=== PATIENT | female | born 1990 | race Caucasian/White ===

== ENCOUNTER 2024-06-09 14:24 | Emergency (ER) | payer OTHER ==
[~2024-06-09] VITALS: Ht 154.9 cm; Wt 65.9 kg
[2024-06-09] MEDS ORDERED: ONDANSETRON ODT8 MG PO (15:43)
[2024-06-09] MEDS ORDERED: haloperidoL 5 MG TAB PO ONE (15:45)
[2024-06-09 16:01] VITALS: BP 133/76
== END 2024-06-09 16:03 | disposition home or self-care (01) ==
LOC: ED 14:24
DX: F11.23 Opioid dependence with withdrawal (principal); Z88.0 Allergy status to penicillin
CPT/HCPCS: 99283

== ENCOUNTER 2024-09-02 13:52 | Emergency (ER) | payer OTHER ==
[~2024-09-02] VITALS: Ht 154.9 cm; Wt 67.6 kg
[~2024-09-02 13:52] MED LIST: ONDANSETRON ODT8 MG PO
[2024-09-02] MEDS ORDERED: KETOROLAC TROMETHAMINE 15 MG/ML VIAL IV ONE (14:15)
[2024-09-02] MEDS ORDERED: ondansetron HCL 4 MG/2 ML VIAL IV PRN (14:15)
[2024-09-02] MEDS ORDERED: SODIUM CHLORIDE 0.9% 1,000 ML IV ONE (14:45)
[2024-09-02] MEDS ORDERED: KETOROLAC TROMETHAMINE 30 MG/ML VIAL IV ONE (14:45)
[2024-09-02 14:49] LABS: BASOPHILS 0.3 % (0-2); EOSINOPHILS 0.3 % (0-6); HEMATOCRIT 39.5 % (35.0-50.0); HEMOGLOBIN 13.4 g/dL (12.0-18.0); MCH 29.8 (27-36); MCV 87.7 fl (81-99); MONOCYTES 0.5 % (0-12); NEUTROPHILS 97.9 % (39-80); PLATELET COUNT 355 K/uL (140-440); RBC 4.51 M/ul (4.3-5.7); RDW 13.3 (10.5-15.0)
[2024-09-02 14:50] LABS: BILIRUBIN, URINE NEGATIVE (negative); BLOOD/HGB, URINE SMALL (Negative); KETONE, URINE NEGATIVE (Negative); LEUK ESTERASE, URINE TRACE (negative); NITRITE, URINE NEGATIVE (negative); PH, URINE 5.5 (5-7)
[2024-09-02 15:06] LABS: ALBUMIN 3.3 g/dL (3.4-5.0); ALBUMIN/GLOBULIN RATIO 0.87 (1.1-2.4); ANION GAP 15.6 (7-21); BACTERIA, URINE RARE /hpf (negative); BILIRUBIN, TOTAL 0.6 ng/dL (0.2-1.0); BUN/CREATININE RATIO 12.85 (6.0-28.6); CALCIUM 8.7 mg/dL (8.5-10.1); CASTS, URINE NONE SEEN \\lpf; COLLECTION TYPE, URINE CLEAN CATCH; CREATININE, SERUM 0.7 mg/dL (0.55-1.02); CRYSTALS, URINE NONE SEEN (0-1+); EPITHELIAL CELLS, URINE SQUAMOUS 1+ /lpf (0-1+); POTASSIUM 3.6 mmol/L (3.5-5.1); PROTEIN, TOTAL 7.1 g/dL (6.4-8.2); REFLEX CULTURE, URINE Yes (No); WHITE BLOOD CELLS, URINE 21-40 /HPF (0-5)
[2024-09-02] MEDS ORDERED: CEFTRIAXONE/SODIUM CHLORIDE 2 GM/100 ML PIGGYBACK IV ONE (15:45)
[2024-09-02] MEDS ORDERED: ONDANSETRON ODT8 MG PO (15:48)
[2024-09-02] MEDS ORDERED: CEPHALEXIN500 M1 PO (15:48)
[2024-09-02 16:46] VITALS: BP 108/73
== END 2024-09-02 16:45 | disposition home or self-care (01) ==
LOC: ED 13:52
PROVIDERS: Emergency Medicine
DX: N12 Tubulo-interstitial nephritis, not specified as acute or chronic (principal); Z88.0 Allergy status to penicillin
CPT/HCPCS: 36415; 80053; 81001; 83690; 84703; 85025; 85060; 87088; 96374; 96375; 99284-25; J0696; J1885; J2405; J7030